=== PATIENT | female | born 1960 | race Caucasian/White ===

== ENCOUNTER 2017-01-17 14:09 | Day surgery (SDC) | payer BC ==
[~2017-01-17] VITALS: Ht 170.2 cm; Wt 80.0 kg
[~2017-01-17 14:09] MED LIST: CEFAZOLIN 1,000 MG ONE; DEXAMETHASONE 4 MG/ML, 1ML ONE; FENTANYL PF 100 MCG/2ML ONE; GLYCOPYRROLATE 0.4 MG/2 ML, 2ML ONE; MIDAZOLAM 1 MG/ML, 2ML ONE; NEOSTIGMINE 1 MG/ML, 10ML ONE; ONDANSETRON 2MG/ML, 2ML ONE; PROPOFOL 10 MG/ML, 20ML ONE; ROCURONIUM 10 MG/ML,10ML ONE; SODIUM CHLORIDE 0.9% PF 10ML ONE
[2017-01-17] MEDS ORDERED: LACTATED RINGERS 1,000 ML IV SCH (14:36)
[2017-01-17] MEDS ORDERED: DILT240C64 PO (14:43)
[2017-01-17] MEDS ORDERED: METH750T2 PO (14:43)
[2017-01-17] MEDS ORDERED: LOSA100T6 PO (14:43)
[2017-01-17] MEDS ORDERED: AMIT10TA PO (14:43)
[2017-01-17] MEDS ORDERED: ALLO300T PO (14:43)
[2017-01-17] MEDS ORDERED: NEBI10TA3 PO (14:43)
[2017-01-17] MEDS ORDERED: ZOLP10TA5 PO (14:44)
[2017-01-17] MEDS ORDERED: ESTR8.1S2 TP (14:44)
[2017-01-17] MEDS ORDERED: ASPI-496 PO (14:49)
[2017-01-17 14:51] VITALS: BP 157/105
[2017-01-17] MEDS ORDERED: LABETALOL 5MG/ML, 20ML IV PRN (15:00)
[2017-01-17] MEDS ORDERED: HYDROmorphone 1 MG/ML, 1ML IV PRN (15:00)
[2017-01-17] MEDS ORDERED: PROMETHAZINE 25 MG/ML, 1ML IV PRN (15:00)
[2017-01-17] MEDS ORDERED: OXYcodone 5 MG/5 ML ORAL.SOL UDC PO PRN (15:00)
[2017-01-17] MEDS ORDERED: MEPERIDINE/PF 25MG/0.5ML IVPush PRN (15:00)
[2017-01-17] MEDS ORDERED: ACETAMINOPHEN 325 MG TABLET PO PRN (15:00)
[2017-01-17] MEDS ORDERED: LIDOCAINE 1%, 2ML SQ PRN (15:00)
[2017-01-17] MEDS ORDERED: ONDANSETRON 2MG/ML, 2ML IVPush PRN (15:00)
[2017-01-17] MEDS ORDERED: hydrALAzine 20 MG/ML, 1ML IV PRN (15:00)
[2017-01-17] MEDS ORDERED: PLEASE ENTER HEIGHT AND WEIGHT MC SCH (15:30)
[2017-01-17] MEDS: FENTANYL PF 100 MCG/2ML IV PRN ×2 (16:51→17:04)
[2017-01-17] MEDS ORDERED: FENTANYL PF 100 MCG/2ML ONE (17:00)
[2017-01-17] MEDS ORDERED: ACETAMINOPHEN 650 MG/20.3 ML UDC ONE (17:00)
[2017-01-17] MEDS ORDERED: OXYcodone 5 MG/5 ML ORAL.SOL UDC ONE (17:01)
[2017-01-17] MEDS ORDERED: HYDROmorphone 1 MG/ML, 1ML ONE (17:22)
[2017-01-17] MEDS ORDERED: OXYcodone/APAP 5/325MG TABLET PO PRN (18:00)
[2017-01-26 09:07] LABS: URIC ACID 100 % (.); URINARY CALCULI COLOR Orange (.)
== END 2017-01-17 18:30 ==
LOC: OUT 14:09
PROVIDERS: ATTEND Urology
DX: N20.0 Calculus of kidney (principal); I10 Essential (primary) hypertension
CPT/HCPCS: 52353; 82360; 88300; C1769; J0690; J1100; J2250; J2405; J2704; J2710; J3010; J3490; J7120